=== PATIENT | female | born 1955 | race Caucasian/White ===

== ENCOUNTER 2016-08-10 12:34 | Outpatient (CLI) ==
[2014-11-11 00:48] VITALS: BMI 23.9
== END 2016-08-10 12:35 | disposition home or self-care (01) ==
LOC: CAR 12:34
PROVIDERS: ATTEND Family Medicine
DX: J96.11 Chronic respiratory failure with hypoxia (principal); J43.1 Panlobular emphysema
CPT/HCPCS: 94761

== ENCOUNTER 2017-06-24 23:32 | Inpatient (IN) ==
[2017-06-24] MEDS ORDERED: SODIUM CHLORIDE 1,000 ML IV STA (23:49)
[2017-06-24] MEDS ORDERED: ROCEPHIN 1 GM in SODIUM CHLORIDE 50 ML IV STA (23:50)
[2017-06-24] MEDS ORDERED: SOLU-MEDROL 125 MG IVP STA (23:50)
[2017-06-24] MEDS ORDERED: DUONEB NEB STA (23:51)
[2017-06-24] MEDS ORDERED: XOPENEX 1.25 MG NEB STA (23:51)
[2017-06-25] MEDS ORDERED: ROCEPHIN ONE (00:01)
--- NOTE | 2017-06-25 00:18 | DI ---
Exam: Chest two-view History: Dyspnea FINDINGS: Normal cardiomediastinal contours. Normal pulmonary vasculature. No infiltrative opacitie s. Lungs appear hyperexpanded. Atherosclerotic calcification of the aorta. No acute chest wall abno rmality. Impression: Chronic obstructive pulmonary disease. No acute findings.
--- NOTE | 2017-06-25 00:36 | ED.PDOC ---
General ED Provider: Dr. ELROY MAYEN-ER Chief Complaint: Shortness of Air Stated Complaint: c/o sob with cough prod green sputum Time Seen by Physician: 23:35 Mode of Arrival: Walk-In Information Source: Patient Exam Limitations: No limitations Primary Care Provider: ELROY MAYEN Nursing and Triage Documentation Reviewed and Agree: Yes Reviewed sepsis parameters & appropriate labs ordered?: Yes System Inflammatory Response Syndrome: Not Applicable Sepsis Protocol: For patient's 13 years and over: Temp is 96.8 and below OR 101 and greater Pulse >90 BPM Resp >20/minute Acutely Altered Mental Status Are patient's symptoms suggestive of a new infection, such as: -Pneumonia -Skin, Soft Tissue -Endocarditis -UTI -Bone, Joint Infection -Implantable Device -Acute Abdominal Infection -Wound Infection -Meningitis -Blood Stream Catheter Infection -Unknown Respiratory Complaint Exam - Respiratory Complaint/Exam Onset/Duration: 24 hrs Symptoms Are: Still present Timing: Intermittent Initial Severity: Mild Current Severity: Mild Location: Chest Character: Reports: Productive cough Aggravating: Reports: URI Alleviating: Reports: Bronchodilators Associated Signs and Symptoms: Reports: Dyspnea, Fever, Wheezing, URI, Nasal congestion, Decreased oral intake. Denies: Rapid breathing, Chills, Chest pain , Pleuritic chest pain, Hemoptysis, Dizziness, Calf pain, Calf swelling, Edema, Hoarseness, Sinus discomfort, Vomiting, Sore throat, Weight loss, Increased thirst, Increased appetite, Increased urination Related History: Reports: Similar episode History of Healthcare-Acquired Pneumonia: No Pseudomonas Risk Factors: Reports: Chronic Lung Disease Tuberculosis Risk Factors: Reports: Chronic Resp. Faliure Status Asthmaticus Risk Factors: Reports: None Home Oxygen Use: Yes Recent Stress Test: No Recent Echo/LV Function: No Current Antibiotic Use: No Current Asthma Medication Use: No Respiratory Distress: Mild Inadequate Respiratory Effort: No Dysphagia Present: No Stridor Present: No JVD Present: No Accessory Muscle Use: No Retractions: Not Present Diminished Breath Sounds: No Sinus Tenderness: None Grunting Respirations: No Kussmaul Respirations: No Differential Diagnoses: COPD Exacerbation, Pneumonia, Bronchitis, Influenza Non-Traumatic Chest Pain Syncope: EKG Performed Review of Systems - Review Of Systems Constitutional: Reports: Fever Eyes: Reports: No symptoms Ears, Nose, Mouth, Throat: Reports: No symptoms Respiratory: Reports: Cough, Short of air, Wheezing Cardiac: Reports: No symptoms GI: Reports: No symptoms : Reports: No symptoms Musculoskeletal: Reports: No symptoms Skin: Reports: No symptoms Neurological: Reports: No symptoms Endocrine: Reports: No symptoms Hematologic/Lymphatic: Reports: No symptoms All Other Systems: Reviewed and Negative Past Medical History - Past Medical History Previously Healthy: No Endocrine: Reports: Unknown Cardiovascular: Reports: Hypertension Respiratory: Reports: COPD, Bronchitis Hematological: Reports: None Gastrointestinal: Reports: None Genitourinary: Reports: None Neuro/Psych: Reports: Depression Musculoskeletal: Reports: Back Pain, Joint Pain Cancer: Reports: None Last Menstrual Period: PT HAS HAD A HYSTERECTOMY - Surgical History General Surgical History: Reports: Unknown - Family History Family History: Reports: Unknown - Social History Smoking Status: Current every day smoker, Heavy tobacco smoker Hx Substance Use: No Alcohol Screening: None Lives: With family - Immunizations Tetanus Shot up to Date: No Physical Exam - Physical Exam Appearance: Well-appearing, No pain distress, Well-nourished Eyes: ERICA, EOMI, Conjunctiva clear ENT: Ears normal, Nose normal, Oropharynx normal Neck: Supple Respiratory: Crackles, Rhonchi, Wheezes Cardiovascular: RRR GI/: Soft, Nontender, No masses, Bowel sounds normal, No Organomegaly Musculoskeletal: Normal strength, ROM intact, No edema, No calf tenderness Skin: Warm, Dry, Normal color Neurological: Sensation intact, Motor intact, Reflexes intact, Cranial nerves intact, Alert, Oriented Psychiatric: Affect appropriate, Mood appropriate, Anxious Interpretation - Radiology Interpretation Radiology Interpretation By: Radiologist Radiology Results: Negative Exam Interpreted: CXR - EKG Interpretation Time of EKG #1: 00:37 Rate: Normal Rhythm: Sinus Ectopy: None [place]: [place] ST Segment: Normal Critical Care Note - Critical Care Note Total Time (mins): 0 Course - Course Hematology/Chemistry: 06/25/17 00:15 Orders, Labs, Meds: Lab Review 06/24/17 06/25/17 23:50 00:15 WBC 10.47 H RBC 4.26 Hgb 12.1 Hct 40.1 MCV 94.1 MCH 28.4 MCHC 30.2 L RDW Coeff of Vaibhav 12.7 Plt Count 163 Immature Gran % (Auto) 0.6 Neut % (Auto) 81.2 Lymph % (Auto) 9.5 L Wolfe % (Auto) 5.5 Eos % (Auto) 2.8 Baso % (Auto) 0.4 Immature Gran # (Auto) 0.1 Neut # 8.5 H Lymph # 1.0 Wolfe # 0.6 Eos # 0.3 Baso # 0.0 Influenza A (Rapid) Negative by naat Influenza B (Rapid) Negative by naat Orders Category Date Time Status ABG DRAW REQUEST Stat CARDIO 06/24/17 23:49 Ordered EKG-(ED ONLY) Stat CARDIO 06/24/17 23:48 Ordered NEBULIZER TREATMENT Stat CARDIO 06/24/17 23:51 Ordered ED IV/MEDIPORT/POWERPORT .ONCE EMERGENCY 06/24/17 23:49 Active ABG Stat LAB 06/24/17 23:48 Received B-TYPE NATRIURETIC PEPTIDE Stat LAB 06/24/17 23:50 Received BLOOD CULTURE (ED ONLY) Stat LAB 06/24/17 Received CBC W/ AUTO DIFF Stat LAB 06/24/17 23:48 Completed COMPREHENSIVE METABOLIC PANEL Stat LAB 06/24/17 23:48 Received D-DIMER Stat LAB 06/24/17 Received MOLECULAR FLU A/B Stat LAB 06/24/17 23:50 Completed MOLECULAR GROUP A STREP Stat LAB 06/24/17 23:50 Completed SPUTUM CULTURE Stat LAB 06/25/17 00:05 Received 0.9 % Sodium Chloride [Saline Flush] MEDS 06/24/17 23:49 Ordered 1 syr IVF PRN PRN Ceftriaxone Sodium [Rocephin] MEDS 06/25/17 00:01 Discontinued 1 gm .ROUTE .STK-MED ONE Ceftriaxone Sodium [Rocephin] 1 gm MEDS 06/24/17 23:50 Discontinued 0.9 % Sodium Chloride [Sodium Chloride] 50 ml IV ONCE Ipratropium/Albuterol Neb [Duoneb] MEDS 06/24/17 23:51 Discontinued 1 vial NEB ONCE STA Levalbuterol HCl [Xopenex 1.25 mg] MEDS 06/24/17 23:51 Discontinued 1 vial NEB ONCE STA Methylprednisolone Sod Succ/Pf [Solu-Medrol 125 mg] MEDS 06/24/17 23:50 Discontinued 125 mg IVP ONCE STA Sodium Chloride 0.9% [Sodium Chloride] 1,000 ml MEDS 06/24/17 23:49 Active IV 30 mls/hr CXR [CHEST, 2 VIEWS PA & LAT] Stat RADS 06/24/17 23:49 Completed Medications Generic Name Dose Route Start Last Admin Trade Name Freq PRN Reason Stop Dose Admin Sodium Chloride 1,000 mls @ 30 mls/hr 06/24/17 23:49 06/25/17 00:24 Sodium Chloride IV 06/26/17 09:08 30 mls/hr .[id number] STA Administration Sodium Chloride 1 syr 06/24/17 23:49 06/25/17 00:28 Saline Flush IVF 1 syr PRN PRN Administration To flush IV Discontinued Medications Generic Name Dose Route Start Last Admin Trade Name Freq PRN Reason Stop Dose Admin Albuterol/Ipratropium 1 vial 06/24/17 23:51 Duoneb NEB 06/24/17 23:52 ONCE STA Ceftriaxone Sodium 1 gm/ 50 mls @ 75 mls/hr 06/24/17 23:50 06/25/17 00:28 Sodium Chloride IV 06/25/17 00:29 75 mls/hr ONCE STA Administration Levalbuterol HCl 1 vial 06/24/17 23:51 Xopenex 1.25 Mg NEB 06/24/17 23:52 ONCE STA Methylprednisolone Sodium Succinate 125 mg 06/24/17 23:50 06/25/17 00:26 Solu-Medrol 125 Mg IVP 06/24/17 23:51 125 mg ONCE STA Administration Vital Signs: Temp Pulse Resp BP Pulse Ox 06/24/17 23:33 98.9 F 90 32 H 111/66 96 Departure - Departure Time of Disposition: 00:44 Disposition: ADMITTED INPATIENT Discharge Problem: COPD exacerbation Acute respiratory failure Qualifiers: Respiratory failure complication: hypercapnia Qualified Code(s): J96.02 - Acute respiratory failure with hypercapnia Instructions: COPD (Chronic Obstructive Pulmonary Disease) (ED) Condition: Stable Pt referred to PMD for follow-up: Yes Allergies/Adverse Reactions: Allergies codeine Adverse Reaction (Verified 06/24/17 23:42) iv contrast dye Adverse Reaction (Uncoded 06/24/17 23:42) Home Medications: Ambulatory Orders Albuterol Sulfate 1 vial INH QID PRN 03/27/14 Citalopram Hydrobromide [Celexa] 40 mg PO DAILY 03/27/14 Fluticasone/Salmeterol 250/50 [Advair 250-50 Diskus] 1 ea INH BID 03/27/14 Tiotropium [place] [Spiriva] 1 cap IH DAILY 03/27/14 Guaifenesin/Dextromethorphan [Mucinex Dm ER 1,200-60 mg Tab] 1 tab PO BID Disposition Discussed With: Patient, Family
[2017-06-25] MEDS: DOXYCYCLINE HYCLATE PO SCH ×3 (01:31→21:43)
[2017-06-25] MEDS ORDERED: SOLU-MEDROL 40 MG ONE (04:48)
[2017-06-25] MEDS ORDERED: SOLU-MEDROL 40 MG IVP SCH (05:00)
[2017-06-25] MEDS: DUONEB NEB SCH ×4 (05:38→23:00)
[2017-06-25] MEDS: SODIUM CHLORIDE 1,000 ML IV SCH ×2 (07:52→19:49)
[2017-06-25] MEDS ORDERED: [UNRECOGNIZED DRUG - OTHER] PO SCH (09:00)
[2017-06-25] MEDS ORDERED: GUAIFENESIN PO SCH (09:00)
[2017-06-25] MEDS ORDERED: DEXTROMETHORPHAN PO SCH (09:00)
[2017-06-25] MEDS ORDERED: NON-FORMULARY MEDICATION (Citalopram Hydrobromide [Celexa] 40 MG) PO SCH (09:00)
[2017-06-25] MEDS: ADVAIR 250-50 DISKUS IH SCH ×2 (09:49→21:43)
[2017-06-25] MEDS: CELEXA PO SCH (09:50)
[2017-06-25] MEDS: MUCINEX DM ER 600-30 MG TABLET PO SCH ×2 (09:50→21:43)
[2017-06-25] MEDS: LOVENOX SUBCUT SCH (09:51)
[2017-06-25] MEDS: SOLU-MEDROL 125 MG IVP SCH ×2 (12:22→21:51)
[2017-06-25 20:57] VITALS: BMI 23.3
[2017-06-25] MEDS: ROCEPHIN 1 GM in SODIUM CHLORIDE 50 ML IV SCH (21:43)
[2017-06-26] MEDS: DUONEB NEB SCH ×4 (04:21→23:42)
[2017-06-26] MEDS: SOLU-MEDROL 125 MG IVP SCH (04:50)
[2017-06-26] MEDS: SODIUM CHLORIDE 1,000 ML IV SCH (08:28)
--- NOTE | 2017-06-26 08:39 | HP ---
CHIEF COMPLAINT: I breathe and I can't hear DISCUSSION: This is a 62 year old lady with a history of chronic respiratory failure, COPD who presented to the emergency department with several days of cough, productive of green sputum. There has been no hemoptysis. She has has low grade fever with no chills and no vomiting. In the emergency department she was found to be afebrile however she did have evidence of hypoxia consistent with acute respiratory failure. Also on examination she was found to have a bilateral serous otitis media with diminished hearing. The patient was subsequently admitted with steroids, antibiotic, bronchial dilators for treatment of her acute respiratory failure. PAST MEDICAL HISTORY: MEDICATIONS: Albuterol inhaler Celexa Advair inhaler Spiriva Mucinex ALLERGIES: Codeine IV contrast PAST MEDICAL HISTORY: History of chronic respiratory failure COPD Anxiety Depression PAST SURGICAL HISTORY: Hysterectomy SOCIAL HISTORY: The patient continues to smoke despite everyone's admonishments to quit. Denies any alcohol or illicit drug use. She resides with family. She is smoker. FAMILY HISTORY: Reviewed and thought not to be pertinent to discussion. REVIEW OF SYSTEMS: No headaches, visual changes, tinnitus, chest pain, hemoptysis, blood in the stool, urinary symptoms or seizures.Increased cough, productive of green sputum with wheezing and dyspnea. PHYSICAL EXAMINATION: V/S: Temperature 92, pulse 82, respiratory 18, blood pressure 118/62 HEENT: Pupils are round. Examination reveals bilateral serous otitis media. Bilateral air fluid levels with serous NECK: Supple. CHEST: Expiratory wheezes CARDIOVASCULAR: Regular rate and rhythm. ABDOMEN: Soft, nontender. EXTREMITIES: Distal extremities without cyanosis or edema. LABS: Chest x-ray is reviewed and there is no consolidation noted. WBC 10,000, ABG reveals a pH 7.3, pCO2 81, pO2 91. Chemistries are reviewed and found to be unremarkable. Flu swabs are negative for influenza. ASSESSMENT: 1. Acute superimposed upon chronic respiratory failure with hypercarbia 2. COPD exacerbation 3. Bilateral serous otitis media PLAN: 1. Antibiotics. 2. Steroids 3. Bronchial dilators 4. May need to have Dr. Escalante see her in regards to her fluid levels, please see orders. MTDD
--- NOTE | 2017-06-26 08:46 | PN ---
DATE OF VISIT: 06/26/17 SUBJECTIVE: Dina's breathing is better and her cough is better. She feels that her wheezing is better. Still has trouble hearing. PHYSICAL EXAM: VITAL SIGN:Temperature 92, pulse 80, respiratory rate 18, blood pressure 126/86 HEENT: Air fluid levels still present NECK: Supple CHEST: Improved but decreased wheezing CARDIOVASCULAR: Regular rate and rhythm. ABDOMEN: Soft, nontender EXTREMITIES: Distal extremities without cyanosis or edema. ASSESSMENT: 1. Acute superimposed upon chronic respiratory failure 2. COPD exacerbation 3. Bilateral serous otitis media PLAN: 1. Wean steroids 2. Continue antibiotics 3. Consult Dr. Escalante 4. Please see orders. MTDD
[2017-06-26] MEDS ORDERED: SOLU-MEDROL 125 MG IVP SCH (09:00)
[2017-06-26] MEDS: LOVENOX SUBCUT SCH (10:22)
[2017-06-26] MEDS: DOXYCYCLINE HYCLATE PO SCH ×2 (10:22→20:15)
[2017-06-26] MEDS: SOLU-MEDROL 40 MG IVP SCH ×2 (10:22→20:18)
[2017-06-26] MEDS: ADVAIR 250-50 DISKUS IH SCH ×2 (10:22→20:15)
[2017-06-26] MEDS: MUCINEX DM ER 600-30 MG TABLET PO SCH ×2 (10:23→20:15)
[2017-06-26] MEDS: CELEXA PO SCH (10:23)
[2017-06-26] MEDS: ROCEPHIN 1 GM in SODIUM CHLORIDE 50 ML IV SCH (20:15)
[2017-06-27] MEDS: DUONEB NEB SCH ×4 (05:15→23:02)
[2017-06-27] MEDS: ADVAIR 250-50 DISKUS IH SCH ×2 (09:38→20:23)
[2017-06-27] MEDS: MUCINEX DM ER 600-30 MG TABLET PO SCH ×2 (09:39→20:22)
[2017-06-27] MEDS: CELEXA PO SCH (09:39)
[2017-06-27] MEDS: DOXYCYCLINE HYCLATE PO SCH ×2 (09:39→20:22)
[2017-06-27] MEDS: SOLU-MEDROL 40 MG IVP SCH ×2 (09:40→20:22)
[2017-06-27] MEDS: LOVENOX SUBCUT SCH (09:40)
[2017-06-27] MEDS: ROCEPHIN 1 GM in SODIUM CHLORIDE 50 ML IV SCH (20:22)
[2017-06-28] MEDS: DUONEB NEB SCH (04:24)
[2017-06-28] MEDS ORDERED: DUONEB NEB SCH (10:00)
[2017-06-28] MEDS: MUCINEX DM ER 600-30 MG TABLET PO SCH (10:02)
[2017-06-28] MEDS: DOXYCYCLINE HYCLATE PO SCH (10:02)
[2017-06-28] MEDS: SOLU-MEDROL 40 MG IVP SCH (10:03)
[2017-06-28] MEDS: CELEXA PO SCH (10:03)
[2017-06-28] MEDS: LOVENOX SUBCUT SCH (10:03)
[2017-06-28] MEDS: ADVAIR 250-50 DISKUS IH SCH (10:04)
[2017-06-28 10:05] VITALS: BP 108/61; TEMP 98.2
--- NOTE | 2017-07-02 08:35 | PN ---
DATE OF VISIT: 06/27/17 SUBJECTIVE: Mrs. Moses continues to improve from the stand point of her shortness of breath with cough. Her cough is less productive. She saw Dr. Escalante and had PE tubes placed. She denies any fever or chills. VITALS: Temperature 97.6, pulse 90, respiratory rate 20. REVIEW OF SYSTEMS: HEENT: PE tubes present LUNGS: Clear CARDIOVASCULAR: Regular rate and rhythm ABDOMEN: Soft, nontender EXTREMITIES: Distal extremities without cyanosis or edema ASSESSMENT: 1. COPD exacerbation 2. Serous otitis media PLAN: 1. Continue antibiotics 2. Continue steroids 3. Probably discharge tomorrow. MTDD
--- NOTE | 2017-07-02 09:41 | DS ---
PRINCIPAL DIAGNOSIS: 1. Superimposed upon chronic respiratory failure with hypercarbia 2. COPD exacerbation 3. Bilateral serous otitis media, marine consultant Dr. Mark Escalante, procedure: placement of PE tubes DISCUSSION: This is a 62 year old lady with history of chronic respiratory failure on home oxygen with COPD presented to the emergency department with several days of cough productive with green sputum. There has been no hemoptysis. She had low grade fever with no chills or vomiting. In the emergency room she was found to be afebrile however she did have evidence of hypoxia consistent with acute respiratory failure and on exam she was found to have bilateral serous otitis media with diminished hearing. The patient was admitted with steroids, antibiotics, bronchial dilators for the treatment of acute respiratory failure. See her history and physical CLINICAL COURSE: She did well with antibiotics. She did rapidly defervesce. Her cough became less productive. She had persistent ear pain. Dr. Escalante was consulted and place PE tubes with immediate resolution of her ear symptoms and meanwhile her oxygenation improved, her cough improved, her wheezing resolved and at time of discharge she was afebrile, tolerating diet and ambulating her room. At this point it was felt that she was stable for discharge. She was discharged with oral antibiotics, steroids and she will continue home oxygen and bronchial dilators.We will see her back in one week. She is going to followup with Dr. Escalante in 2 weeks. [facility] HOSPITALJosé Miguel
== END 2017-06-28 13:15 | disposition home or self-care (01) | DRG 189 ==
LOC: ED 23:32 → MEDSURG A 06-25 17:36
PROVIDERS: ADMIT Family Medicine; ATTEND Family Medicine
DX: J96.02 Acute respiratory failure with hypercapnia (principal); J44.1 Chronic obstructive pulmonary disease with (acute) exacerbation; H65.03 Acute serous otitis media, bilateral; R06.02 Shortness of breath; R50.9 Fever, unspecified; F17.200 Nicotine dependence, unspecified, uncomplicated; Z96.22 Myringotomy tube(s) status; Z99.81 Dependence on supplemental oxygen; Z79.899 Other long term (current) drug therapy
CPT/HCPCS: 36415; 80053; 82803; 83880; 85025; 85379; 87040; 87070; 87186; 87502; 87651; 93005; 93010; 94640; 96365; 96372; 96375; 96376; 99284

== ENCOUNTER 2017-11-08 12:40 | Outpatient (CLI) ==
--- NOTE | 2017-11-08 13:26 | CT ---
Exam: CT chest without contrast History: Chest wall pain Technique: [address] of the chest without intravascular contrast FINDINGS: The lung windows show scattered bilateral areas of pleural and parenchymal scarring. No i nfiltrative opacities. No suspicious nodules or masses. There is no pleural fluid. Atherosclerotic calcification of the aorta without aneurysm. No pathologic lymph node enlargement or abundance of t he mediastinum. No acute findings of the chest wall soft tissues or bony thorax. Left anterior firs t and second rib bridging variant. Endplate degenerative change of the spine. No acute findings of the upper abdomen. Impression: 1. Scattered areas of nonspecific parenchymal scarring and generalized hyperexpansion of chronic obs tructive pulmonary disease. 2. No acute chest wall abnormalities are seen. 3. No acute cardiopulmonary disease.
== END 2017-11-08 12:41 | disposition home or self-care (01) ==
LOC: RAD 12:40
PROVIDERS: ATTEND Family Medicine
DX: R07.89 Other chest pain (principal)

== ENCOUNTER 2018-04-15 14:30 | Outpatient (CLI) ==
--- NOTE | 2018-04-15 15:16 | DI ---
EXAM: Three views of the thoracic spine. History: Thoracic back pain. Findings: Scoliosis. Atherosclerotic vascular calcifications. Osteopenia. No acute fracture or yee bluxation. Mild to moderate multilevel disc space narrowing with endplate sclerosis and osteophyte f ormation. Impression: 1. No acute osseous abnormality. 2. Mild to moderate degenerative disc disease. 3. Scoliosis
--- NOTE | 2018-04-15 15:18 | DI ---
EXAM: Five views of the lumbar spine HISTORY: Lower back pain. COMPARISON: CT lumbar spine 12/18/2013 FINDINGS: There is no acute compression fracture or subluxation. There is multilevel disc space narr owing most pronounced at L4-L5 with moderate facet arthropathy. There is no lytic or blastic lesion. There are scattered areas of concern for neural foraminal narrowing. There is mild rightward curva ture of the upper lumbar spine. IMPRESSION: 1. No acute compression fracture or subluxation. 2. Multilevel moderate degenerative disease of the lumbar spine with rightward curvature of the uppe r lumbar spine.
== END 2018-04-15 14:31 | disposition home or self-care (01) ==
LOC: RAD 14:30
PROVIDERS: ATTEND Family Medicine
DX: M54.5 Low back pain (principal); G89.29 Other chronic pain